=== PATIENT | male | born 1950 | race Caucasian/White ===

== ENCOUNTER 2020-03-31 13:37 | Outpatient (CLI) | payer OTHER ==
[~2020-03-31 13:37] MED LIST: PERCOCET 5/3251 TAB PO; SYNTHROID137 MCG
== END 2020-03-31 14:19 | disposition home or self-care (01) ==
LOC: SONOGRAMA 13:37
PROVIDERS: ATTEND Internal Medicine Gastroenterology
DX: R16.0 Hepatomegaly, not elsewhere classified (principal)

== ENCOUNTER 2020-12-02 11:35 | Emergency (ER) | payer OTHER ==
[~2020-12-02] VITALS: Ht 177.8 cm; Wt 106.1 kg
[2020-12-02] MEDS ORDERED: HYDRODIURIL12.5 MG PO (12:04)
[2020-12-02] MEDS ORDERED: LIPITOR20 MG PO (12:04)
== END 2020-12-02 19:05 | disposition home or self-care (01) ==
LOC: ER 11:35
DX: K57.30 Diverticulosis of large intestine without perforation or abscess without bleeding (principal); K62.5 Hemorrhage of anus and rectum